=== PATIENT | female | born 1995 | race Caucasian/White ===

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

== ENCOUNTER 2017-02-27 16:33 | Emergency (ER) | payer OTHER ==
[2017-02-27 16:35] VITALS: TEMP 36.8
[2017-02-27] MEDS ORDERED: SODIUM CHLORIDE 0.9% 1000ML 1,000 ML IV STA (16:47)
[2017-02-27] MEDS ORDERED: ACETAMINOPHEN 500 MG TAB PO STA (16:47)
[2017-02-27] MEDS ORDERED: KETOROLAC TROMETHAMINE 30 MG/ML VIAL IV STA (16:47)
[2017-02-27] MEDS ORDERED: DEXAMETHASONE **PF** INJ 10 MG/ML VIAL IV ONE (17:00)
[2017-02-27 17:27] LABS: HEMATOCRIT 35.8 % (37-47); MEAN CELL VOLUME 87.5 fL (80-100); MEAN CORPUSCULAR HEMOGLOBIN 30.6 pg (25-34); MEAN CORPUSCULAR HGB CONC 34.9 g/dl (32-36); MEAN PLATELET VOLUME 9.8 fL (7.4-10.4); PLATELET COUNT 136 K/uL (130-400); RED BLOOD COUNT 4.09 M/uL (4.2-5.4); WHITE BLOOD COUNT 6.56 K/uL (4.8-10.8)
[2017-02-27 17:45] LABS: ALT/SGPT 40 U/L (12-78); BLOOD UREA NITROGEN 10 mg/dl (7-18); BUN/CREATININE RATIO 13.9 (10-20); CALCIUM 9.5 mg/dl (8.5-10.1); CARBON DIOXIDE 26 mmol/L (21-32); CHLORIDE 102 mmol/L (98-107); CREATININE 0.69 mg/dl (0.60-1.20); GLUCOSE 113 mg/dl (70-99); POTASSIUM 3.6 mmol/L (3.5-5.1); SODIUM 137 mmol/L (136-145)
[2017-02-27 17:47] LABS: COMPLETE YES; LYMPH ABS # 1.08 K/uL (1.2-3.4); LYMPHOCYTE % 16.5 %; NEUTROPHILS % 45.3 %; VARIANT LYM ABS # 1.99 K/uL; VARIANT LYMPHOCYTE % 30.4 %
[2017-02-27 17:48] LABS: ALB/GLOB RATIO 0.7 (0.9-2); ALKALINE PHOSPHATASE 109 U/L (45-117); AST/SGOT 33 U/L (15-37)
[2017-02-27] MEDS ORDERED: PRED50TA PO (18:04)
[2017-02-27 18:30] VITALS: BP 105/70; PULSE 91; O2SAT 98
--- NOTE | 2017-02-27 19:28 | EMERGENCY ROOM VISIT NOTE ---
History Report prepared by Mahendra: Yojana Rosis Under the Supervision of: Dr. Mic Genao M.D. First contact with patient: 16:39 Chief Complaint: SORETHROAT Stated Complaint: FEVER,SORE THROAT,DEHYDRATION,STUFFINESS,WHITE SPO History of Present Illness The patient is a 21 year old female who presents to the Emergency Room with complaints of a worsening sore throat starting a week ago. 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 She reports that they told her to just take Tylenol and she has been with no relief. She notes her last dose was early this morning. She describes this as feeling like her throat is on fire. The patient currently rates her pain as a 7/10 in severity. She states that the pain is on both sides of her throat. She states that the pain is worse at night and in turn, she has difficulty sleeping. She reports that four days ago she noticed white spots on her tonsils. The patient states that she has started to become nauseous and then vomit anytime she tries to eat. The patient complains of fatigue, fever, and neck pain. She notes that the fevers only come at night. Pt denies LOC, headache, chills, diaphoresis, visual changes, chest pain, breathing difficulties, abdominal pain, back pain, melena, hematochezia, urinary symptoms, numbness, weakness, lymphadenopathy, rash, or other complaints. Source of History: patient Onset: a week ago Position: throat Symptom Intensity: 7/10 Quality: other (on fire) Timing: worsening Modifying Factors (Worsening): other (at night) Associated Symptoms: + fevers, + neck pain, + nausea, + vomiting, + fatigue Note: The patient complains of white spots on her tonsils. Review of Systems See HPI for pertinent positives and negatives. A total of ten systems were reviewed and were otherwise negative. Past Medical & Surgical Medical Problems: (1) No Known Active Medical Problems Family History No pertinent family history Social History Smoking Status: Never Smoker Drug Use: none Marital Status: single Housing Status: lives with roommate Occupation Status: [employer] student Current/Historical Medications Scheduled Prednisone (Prednisone), 50 MG PO DAILY Allergies Coded Allergies: No Known Allergies (Unverified , 04/27/16) Physical Exam Vital Signs Date Time Temp Pulse Resp B/P (MAP) Pulse Ox O2 Delivery O2 Flow Rate FiO2 02/27/17 18:30 91 16 105/70 98 02/27/17 16:55 97 Room Air 02/27/17 16:35 36.8 112 20 120/71 97 Room Air Physical Exam GENERAL: Awake, alert, tired appearing, non-ill appearing, no distress HEAD: Normocephalic, atraumatic. No edema. EYES: Normal conjunctiva. Sclera non-icteric. EARS: Right TM normal. Left TM normal. NOSE: Mild congestion. OROPHARYNX: Lips, tongue, and mucosa unremarkable. No erythema. Tonsillar exudate bilaterally. Uvula is midline. NECK: Supple. No nuchal rigidity. FROM. Anterior adenopathy. Negative jolt accentuation test. RESPIRATORY: CTA bilaterally. No wheezes rales or rhonchi. CARDIAC: Tachycardic rate, normal rhythm. ABDOMEN: Soft, non distended. No tenderness to palpation. NEURO: Normal sensorium. SKIN: No rash or jaundice noted Medical Decision & Procedures Laboratory Results 02/27/17 17:15 Red Blood Count 4.09, Mean Corpuscular Volume 87.5, Mean Corpuscular Hemoglobin 30.6, Mean Corpuscular Hemoglobin Concent 34.9, Mean Platelet Volume 9.8 02/27/17 17:15 Test 02/27/17 17:15 White Blood Count 6.56 K/uL (4.8-10.8) Red Blood Count 4.09 M/uL (4.2-5.4) Hemoglobin 12.5 g/dL (12.0-16.0) Hematocrit 35.8 % (37-47) Mean Corpuscular Volume 87.5 fL (80-100) Mean Corpuscular Hemoglobin 30.6 pg (25-34) Mean Corpuscular Hemoglobin Concent 34.9 g/dl (32-36) Platelet Count 136 K/uL (130-400) Mean Platelet Volume 9.8 fL (7.4-10.4) RDW Standard Deviation 40.1 fL (36.4-46.3) RDW Coefficient of Variation 12.4 % (11.5-14.5) Neutrophils % (Manual) 45.3 % Lymphocytes % (Manual) 16.5 % Variant Lymphocytes % (manual) 30.4 % Monocytes % (Manual) 7.8 % Neutrophils # (Manual) 2.97 K/uL (1.4-6.5) Total Absolute Neutrophils 2.97 K/uL (1.4-6.5) Lymphocytes # (Manual) 1.08 K/uL (1.2-3.4) Absolute Variant Lymphocytes 1.99 K/uL Total Absolute Lymphocytes 3.08 K/uL (1.2-3.4) Monocytes # (Manual) 0.51 K/uL (0.11-0.59) Anion Gap 9.0 mmol/L (3-11) Estimated GFR () 146.3 Estimated GFR (Non- 126.2 BUN/Creatinine Ratio 13.9 (10-20) Calcium Level 9.5 mg/dl (8.5-10.1) Total Bilirubin 0.6 mg/dl (0.2-1) Aspartate Amino Transf (AST/SGOT) 33 U/L (15-37) Alanine Aminotransferase (ALT/SGPT) 40 U/L (12-78) Alkaline Phosphatase 109 U/L (45-117) Total Protein 8.5 gm/dl (6.4-8.2) Albumin 3.5 gm/dl (3.4-5.0) Globulin 5.0 gm/dl (2.5-4.0) Albumin/Globulin Ratio 0.7 (0.9-2) Monoscreen POS (NEG) Laboratory results reviewed by me Medications Administered Medications (Trade) Dose Ordered Sig/Reza Route Start Time Stop Time Status Last Admin Dose Admin Sodium Chloride 1,000 ml @ 999 mls/hr Q1H1M STAT IV 02/27/17 16:47 02/27/17 17:47 DC 02/27/17 17:23 999 MLS/HR Dexamethasone Sodium Phosphate (Dexamethasone Inj Pf) 10 mg NOW ONCE IV 02/27/17 17:00 02/27/17 17:01 DC 02/27/17 17:22 10 MG Acetaminophen (Tylenol Tab) 1,000 mg NOW STAT PO 02/27/17 16:47 02/27/17 16:49 DC 02/27/17 17:21 1,000 MG Ketorolac Tromethamine (Toradol Inj) 15 mg NOW STAT IV 02/27/17 16:47 02/27/17 16:49 DC 02/27/17 17:22 15 MG ED Course 1642: The patient was evaluated in room A3. A complete history and physical exam was performed. 1647: Ordered Toradol Inj 15 mg IV, Tylenol Tab 1000 mg PO, NSS 1000 ml @ 999 mls/hr IV. 1700: Ordered Dexamethasone Sodium Phosphate 10 mg IV. 1754: I reevaluated the patient and she is feeling better. 1808: I reevaluated the patient and she is feeling much better. Discussed results and discharge instructions: She verbalized understanding and agreement. The patient is ready for discharge. Medical Decision Triage Nursing notes reviewed and agree them. The patient's history was concerning for fever, chills, and sore throat. Differential diagnosis: Etiologies such as mononucleosis, streptococcal pharyngitis, peritonsillar abscess, viral syndrome, retropharyngeal abscess, tonsillitis, otitis, pneumonia, influenza, as well as others were entertained. ER treatment provided: IV normal saline IV Decadron IV Toradol Oral Tylenol On reassessment the patient felt better. Diagnostics interpreted by me: The labs revealed an unremarkable CBC and chemistry panel. Towner positive. Imaging studies: Deferred The patient has mononucleosis. She does not have any splenomegaly on physical examination. No evidence of peritonsillar abscess. I gave my usual and customary discussion regarding this issue. By the evaluation outlined above emergent etiologies such as peritonsillar abscess, retropharyngeal abscess, otitis, pneumonia, meningitis, urinary tract infection, sepsis, bacteremia, as well as others were deemed relatively unlikely. The patient was informed about the findings as listed above. All questions were answered and she was pleased with the treatment. Return instructions were outlined and the patient was discharged in stable condition. Outpatient prescription management: Prednisone Referral: The patient was referred back to her primary care physician for follow-up in 2 to 3 days for a recheck of the current condition. The chart was completed utilizing [employer] voice recognition software. Grammatical errors, random word insertions, pronoun errors, and incomplete sentences are an occasional consequence of this system due to software limitations, ambient noise, and hardware issues. Any formal questions or concerns about the content, text, or information contained within the body of this dictation should be directly addressed to the physician for clarification. Medication Reconcilliation Current Medication List: was personally reviewed by me Blood Pressure Screening Patient's blood pressure: Normal blood pressure Blood pressure disposition: Did not require urgent referral Impression Primary Impression: Mononucleosis Scribe Attestation The scribe's documentation has been prepared under my direction and personally reviewed by me in its entirety. I confirm that the note above accurately reflects all work, treatment, procedures, and medical decision making performed by me. Departure Information Dispostion Home / Self-Care Prescriptions Prednisone (Prednisone) 50 Mg Tab 50 MG PO DAILY for 3 Days, #3 TAB Prov: Mic Genao MD 02/27/17 Referrals No Doctor, Assigned (PCP) Forms HOME CARE DOCUMENTATION FORM, IMPORTANT VISIT INFORMATION Patient Instructions [facility] Additional Instructions Diagnosis: Mononucleosis Prednisone 50 mg: Once daily until the prescription is finished. Cepacol lozenges or similar product [id number] for a sore throat as needed. Warm salt water gargles every 2-3 hours as needed for sore throat. Acetaminophen(Tylenol) may be used for fever or pain. Use 1000mg every six hours as needed. Avoid using more than 4000mg in a 24 hour period. (AND/OR) Ibuprofen(Motrin, Advil) may be used for fever or pain. Use 600mg every six hours as needed. Take with food. Avoid using more than 2400mg in a 24 hour period. Do not use 2400mg per day for more than three consecutive days without physician direction. Prolonged inappropriate use can lead to stomach upset or ulcers. Rest and drink plenty of fluids. Controlling your fever with Tylenol and Ibuprofen as above will make you feel better. Wash your hands after nose blowing, sneezing, or coughing. Most germs are spread through contact, therefore improper hygiene may result in your close contacts and loved ones becoming ill just like you. Return to the ER for severe headache, neck stiffness, chest pain, difficulty breathing, fevers, vomiting, worsening of your condition, or as needed. Follow up with your primary physician this week for a recheck of your current condition.
== END 2017-02-27 18:30 | disposition home or self-care (01) ==
LOC: C.EDB 16:33 → C.EDA 18:30
DX: B27.90 Infectious mononucleosis, unspecified without complication (principal)